=== PATIENT | female | born 1970 | race Asian ===

== ENCOUNTER 2020-09-18 18:17 | Emergency (ER) | payer OTHER, SELFPAY ==
[2020-09-18 18:44] VITALS: BP 146/79; PULSE 64; RESP 16; TEMP 37; O2SAT 100; BMI 28.3
[2020-09-18] MEDS: PROPARACAINE 0.5% OPHTH SOL 1 DROPS EYE-BOTH (19:40)
--- NOTE | 2020-09-18 19:54 | ED.EYEPROB ---
HPI - Eye Problem <Christiano Pineda PA-C - Last Filed: 09/18/20 20:04> General Chief complaint: Eye Problems Stated complaint: Red Left Eye, Got Essential Oil in Eye Time Seen by Provider: 09/18/20 19:51 History of Present Illness HPI Narrative: Drew presents today with chief complaint of left eye irritation, redness and blurred vision that started on Tuesday. She reports that she previously but some peppermint oil to her forehead and thinks some of it may have gotten into her eye. She does not remember a specific incident that occurred but that is her best guess. She has been using eyedrops as she has history of dry eye and acoustic neuroma of the left side but these do not seem to be helping her symptoms. She denies any fever, pain with eye movement, photosensitivity, or any other acute concerns or complaints at this time. Related Data Previous Rx's Medication Instructions Recorded erythromycin 5 mg/gram (0.5 %) eye 1 applic EYE-LEFT QID 7 Days #3.5 g 09/18/20 ointment Allergies Allergy/AdvReac Type Severity Reaction Status Date / Time INGREDIENT: NDA - NO KNOWN Allergy Unknown Uncoded 05/18/17 11:55 DRUG ALLERGIES Review of Systems <Christiano Pineda PA-C - Last Filed: 09/18/20 20:04> Review of Systems Narrative: As per HPI Exam <Christiano Pineda PA-C - Last Filed: 09/18/20 20:04> Narrative Exam Narrative: Exam Narrative: Const General: cooperative, healthy appearing, comfortable, no acute distress, well developed and well groomed Nutritional Appearance: average body habitus Orientation: alert and oriented x3 HENMT Head: normal to inspection and atraumatic Ears: hearing grossly normal bilaterally Nose: external nose normal and nares normal Face and sinus: normal facial exam Eyes: Right eye and surrounding structures grossly normal in appearance. Left eye has diffuse conjunctival injection, clear discharge, and mild periorbital swelling. No fluorescein uptake noted on Wood's lamp evaluation. Thien-Pen performed on the patient, eye pressure that is 13mmHg on the left and 16mmHg on the right. Vision grossly intact. Pupils equal and reactive to light. She has movement deficit to right-sided of the left eye. Neck Neck: normal visual inspection and supple Resp Effort & Inspection: normal respiratory effort, able to speak in complete sentences, no audible wheezes, not labored, no nasal flaring and no respiratory distress Neuro General: alert, oriented x3, gait normal, tone normal and moves all extremities Cognition: normal cognition Speech: speech normal Gait: normal gait Psych Appearance: grossly normal and well kempt Mental Status: mental status grossly normal Speech and Movement: speech and movement normal Mood: congruent mood Affect: normal affect Initial Vital Signs Initial Vital Signs: Vital Signs Temperature 98.6 F 09/18/20 18:44 Pulse Rate 64 09/18/20 18:44 Respiratory Rate 16 09/18/20 18:44 Blood Pressure 146/79 H 09/18/20 18:44 Pulse Oximetry 100 09/18/20 18:44 <Abner Hess DO - Last Filed: 09/19/20 06:22> Initial Vital Signs Initial Vital Signs: Vital Signs Temperature 98.6 F 09/18/20 18:44 Pulse Rate 64 09/18/20 18:44 Respiratory Rate 16 09/18/20 18:44 Blood Pressure 146/79 H 09/18/20 18:44 Pulse Oximetry 100 09/18/20 18:44 Course <Christiano Pineda PA-C - Last Filed: 09/18/20 20:04> Orders Ordered: Discontinued Medications Proparacaine HCl (Proparacaine 0.5% Ophth Ashley) 1 drops EYE-BOTH NOW ONE Stop: 09/18/20 19:46 Last Admin: 09/18/20 19:40 Dose: 1 drops Documented by: AIDAN Vital Signs Vital signs: Vital Signs - 8 hr 09/18/20 18:44 Temperature 98.6 F Pulse Rate 64 Respiratory Rate 16 Blood Pressure 146/79 H Pulse Oximetry 100 <DO Ronaldo Rincon Last Filed: 09/19/20 06:22> Orders Ordered: Discontinued Medications Proparacaine HCl (Proparacaine 0.5% Ophth Ashley) 1 drops EYE-BOTH NOW ONE Stop: 09/18/20 19:46 Last Admin: 09/18/20 19:40 Dose: 1 drops Documented by: JUANITAN Vital Signs Vital signs: Vital Signs - 8 hr 09/18/20 18:44 Temperature 98.6 F Pulse Rate 64 Respiratory Rate 16 Blood Pressure 146/79 H Pulse Oximetry 100 MDM - Eye Problem <Christiano Pineda PA-C - Last Filed: 09/18/20 20:04> [facility] Narrative Medical decision making narrative: Differential diagnosis includes chemical burn, keratitis, acute angle closure glaucoma, conjunctivitis, periorbital cellulitis, Periorbital swelling is minimal at this time. Ocular pressures are within normal limits. She has known history of dry eye and partial paralysis of her left eye secondary to her acoustic neuroma. 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 Strict ER return precautions were discussed. We will treat with antibiotics at this time with the understanding that if her symptoms worsen in any way she will return for re-evaluation. Patient verbalizes understanding and agrees to plan and has no further concerns at this time. Thank you A [id number] system was used with the dictation of this note. Please disregard any spelling or grammatical errors. Discharge Plan Departure Patient Disposition: Home Clinical Impression: Conjunctivitis Qualifiers: Conjunctivitis type: acute Acute conjunctivitis type: unspecified Laterality: left Qualified Code(s): H10.32 - Unspecified acute conjunctivitis, left eye Activity Restrictions/Additional Instructions: It was very nice to meet you this evening. Please apply the topical antibiotics and follow up with Ophthalmology on Tuesday. If you experience significant worsening pain, facial swelling, fever, pain with eye movement, vision changes then please return promptly to the emergency department for re-evaluation. Thank you Christiano Pineda PAC Prescriptions: New erythromycin 5 mg/gram (0.5 %) ointment 1 applic EYE-LEFT QID 7 Days Qty: 3.5 RF: 0 Referrals: Duncan Dunlap DO [Primary Care Provider] - <Abner Hess DO - Last Filed: 09/19/20 06:22> Cosign ED Attending Cosignature Attestation: I was immediately available in the department for consultation. This documentation has been reviewed and I agree with assessment and plan. Supervised by Abner Hess DO
[2020-09-18 20:04] VITALS: BP 141/75; PULSE 60; O2SAT 100
== END 2020-09-18 20:15 | disposition home or self-care (01) ==
PROVIDERS: Emergency Provider Physician Assistant; PCP Family Medicine
DX: H10.32 Unspecified acute conjunctivitis, left eye (principal)
CPT/HCPCS: 99282

== ENCOUNTER 2023-09-25 17:59 | Emergency (ER) | payer OTHER, SELFPAY ==
[2023-09-25 18:09] VITALS: BP 183/84; PULSE 92; RESP 14; TEMP 36.8; O2SAT 100; BMI 26.5
[2023-09-25 18:39] LABS: Add Manual Diff / Slide Review NO; Basophils Absolute Auto 100 /uL (0-100); Basophils Percent Auto 0.8 % (0-2); Eosinophils Absolute Auto 400 /uL (0-450); Eosinophils Percent Auto 5.1 % (2-4); Hematocrit 44.6 % (36-46); Hemoglobin 15.1 g/dL (12.0-16.0); Lymphocytes Absolute Auto 2600 /uL (1100-4500); Lymphocytes Percent Auto 35.1 % (25-40); Mean Corpuscular HGB Conc 33.9 % (30-36); Mean Corpuscular Hemoglobin 29.8 PG (26-34); Mean Corpuscular Volume 87.8 fL (80-100); Monocytes Absolute Auto 600 /uL (0-900); Monocytes Percent Auto 8.4 % (3-14); Neutrophils Absolute Auto 3700 /uL (1500-7000); Neutrophils Percent Auto 50.6 % (50-75); Platelet Count 198 X10^3/uL (150-400); Red Blood Cell Count 5.08 X10^6/uL (4.0-5.2); Red Cell Distribution Width 13.2 % (11.6-14.8); White Blood Cell Count 7.3 X10^3/uL (4.5-11.0)
[2023-09-25 18:49] LABS: Alanine Aminotransferase 21 IU/L (<35); Albumin 4.4 g/dL (3.5-5.0); Albumin Globulin Ratio 1.3 (1.0-2.8); Alkaline Phosphatase 94 U/L (38-126); Aspartate Aminotransferase 28 IU/L (14-36); BUN Creatinine Ratio 17.7 (6-22); Bilirubin Total 0.6 mg/dL (0.2-1.3); Blood Urea Nitrogen 25 mg/dL (7-17); Calcium 9.3 mg/dL (8.4-10.2); Carbon Dioxide 27 mmol/L (22-32); Chloride 105 mmol/L (98-107); Estimated Glomerular Filt Rate 45 mL/min (>60); Globulin 3.4 g/dL (1.7-4.1); Glucose 101 mg/dL (70-100); HEMOLYSIS < 15 (0-50); Potassium 3.6 mmol/L (3.4-5.1); Sodium 139 mmol/L (137-145); Total Protein 7.8 g/dL (6.3-8.2)
[2023-09-25 22:31] VITALS: BP 157/82; PULSE 61; RESP 16; TEMP 36.4; O2SAT 100
[2023-09-25 23:16] VITALS: PULSE 62; O2SAT 98
--- NOTE | 2023-09-25 23:17 | PC.NURSE ---
Pt has left sided facial numbness and is unable to distiguish pain level. However, she was seen at walk-in clinic on Tuesday09/19/23 given ciprofloxacin drops for 7 days. She was also seen by PCP on with instruction to complete ear drop regimen. Pt dizziness started on Tuesday and has continued to presently. Pt states that she has 80% hearing loss in her left ear.
[2023-09-25 23:30] VITALS: PULSE 61; O2SAT 98
--- NOTE | 2023-09-25 23:37 | ED.EAR ---
HPI - Ear Problem General Chief complaint: Ear Stated complaint: Ringing in Ears, Dizzyness Time Seen by Provider: 09/25/23 23:19 Source: patient Mode of arrival: Ambulatory History of Present Illness HPI Narrative: Patient 53-year-old female history of acoustic neuroma presenting today with ringing in her ears. She reports it has been going on for about a week. Her left ear was bothering her she went to the walk-in clinic where they prescribed her ofloxacin drops. She thinks she nicked her ear has not bled a little bit. At 1 point she was dizzy but it did not last for very long she has really not dizzy anymore and has not been for few days. No numbness tingling or weakness. No nausea or vomiting. She continues to have tinnitus. Denies any headache. Related Data Previous Rx's Medication Instructions Recorded meclizine 25 mg tablet 25 mg PO TID PRN dizziness #10 tabs 09/26/23 Allergies Allergy/AdvReac Type Severity Reaction Status Date / Time INGREDIENT: NDA - NO KNOWN Allergy Unknown Uncoded 05/18/17 11:55 DRUG ALLERGIES Patient History Social History Smoking Status: Never smoker Smoking Status: Never smoker alcohol intake frequency: other Alcohol type: other Exam Initial Vital Signs Initial Vital Signs: Vital Signs Temperature 98.3 F 09/25/23 18:09 Pulse Rate 92 H 09/25/23 18:09 Respiratory Rate 14 09/25/23 18:09 Blood Pressure 183/84 H 09/25/23 18:09 Pulse Oximetry 100 09/25/23 18:09 Oxygen Delivery Method Room Air 09/25/23 18:09 GENERAL: Alert well-appearing 53-year-old female and in [no acute] distress. HEENT: Head atraumatic,EOMI, pupils reactive, face symmetric, [moist] mucous membranes EAR: Right ear normal external exam no tympanic erythema or bulging membranes Left normal external ear canal does appear scratched with a scab but no active bleeding no significant erythema or bulging membrane CARDIOVASCULAR: Regular rate and rhythm without murmurs, rubs or gallops. RESPIRATORY: Breath sounds equal bilaterally, no wheezes rales or rhonchi. ABDOMEN: Soft, nontender. Normoactive bowel sounds all 4 quadrants. No guarding or rebound. EXTREMITIES: Normal range of motion, no clubbing or edema. Neurovascularly intact NEUROLOGICAL: Alert and oriented x4.Normal gait and speech. Cranial nerves II through XII grossly intact. SKIN: Warm, dry, no laceration, no petechiae, no rashes or lesions. Course Orders Ordered: ED Orders 09/25/23 23:50 CT head/brain wo con Stat Vital Signs Vital signs: Vital Signs - 8 hr 09/25/23 22:31 09/25/23 23:16 09/25/23 23:30 Temperature 97.5 F L Pulse Rate 61 62 61 Respiratory Rate 16 Blood Pressure 157/82 H Pulse Oximetry 100 98 98 Oxygen Delivery Method Room Air Room Air 09/26/23 00:04 09/26/23 00:06 09/26/23 00:06 Temperature Pulse Rate 75 60 Respiratory Rate Blood Pressure 193/83 H Pulse Oximetry 100 100 Oxygen Delivery Method Room Air 09/26/23 00:11 09/26/23 00:11 Temperature Pulse Rate 57 L Respiratory Rate 18 Blood Pressure 175/70 H Pulse Oximetry 100 Oxygen Delivery Method Medical Decision Making Lab Data 09/25/23 18:25 09/25/23 18:25 Labs: Lab Results 09/25/23 Range/Units 18:25 WBC 7.3 (4.5-11.0) X10^3/uL RBC 5.08 (4.0-5.2) X10^6/uL Hgb 15.1 (12.0-16.0) g/dL Hct 44.6 (36-46) % MCV 87.8 (80-100) fL MCH 29.8 (26-34) PG MCHC 33.9 (30-36) % RDW 13.2 (11.6-14.8) % Plt Count 198 (150-400) X10^3/uL Neut % (Auto) 50.6 (50-75) % Lymph % (Auto) 35.1 (25-40) % [place] % (Auto) 8.4 (3-14) % Eos % (Auto) 5.1 H (2-4) % Baso % (Auto) 0.8 (0-2) % Neut # (Auto) 3700 (0031-1416) /uL Lymph # (Auto) 2600 (2241-1742) /uL [place] # (Auto) 600 (0-900) /uL Eos # (Auto) 400 (0-450) /uL Baso # (Auto) 100 (0-100) /uL Sodium 139 (137-145) mmol/L Potassium 3.6 (3.4-5.1) mmol/L Chloride 105 (98-107) mmol/L Carbon Dioxide 27 (22-32) mmol/L BUN 25 H (7-17) mg/dL Creatinine 1.41 H (0.52-1.04) mg/dL Estimated GFR 45 L (>60) mL/min BUN/Creatinine Ratio 17.7 (6-22) Glucose 101 H (70-100) mg/dL Calcium 9.3 (8.4-10.2) mg/dL Total Bilirubin 0.6 (0.2-1.3) mg/dL AST 28 (14-36) IU/L ALT 21 (<35) IU/L Alkaline Phosphatase 94 (38-126) U/L Total Protein 7.8 (6.3-8.2) g/dL Albumin 4.4 (3.5-5.0) g/dL Globulin 3.4 (1.7-4.1) g/dL Albumin/Globulin Ratio 1.3 (1.0-2.8) Imaging Data CT scan - head: Radiologist's Impression: PROCEDURE: CT HEAD/BRAIN WO CON INDICATIONS: Tinnitus, history left acoustic neuroma TECHNIQUE: Noncontrast 4.5 mm thick angled axial sections acquired from the foramen magnum to the vertex, with coronal and sagittal reformats. For radiation dose reduction, the following was used: automated exposure control, adjustment of mA and/or kV according to patient size. COMPARISON: None. FINDINGS: Image quality: Diagnostic. CSF spaces: Basal cisterns are patent. No extra-axial fluid collections. Ventricles are normal in size and shape. Brain: Encephalomalacia within the left cerebellar hemisphere. No midline shift. No intracranial masses or hemorrhage. Carbajal-white matter interface is normal. Skull and face: Calvarium and visualized facial bones are intact, without suspicious lesions. Postsurgical changes of the left eyelid. Sinuses: Visualized sinuses and mastoids are clear. Left mastoidectomy. IMPRESSION: No cause for patient's symptoms is identified. No acute intracranial pathology. Dictated by: Romaine Patel M.D. on 09/26/2023 at 0:17 MDM Narrative Medical decision making narrative: Patient 53-year-old female presents today with tinnitus and dizziness. He previously had an acoustic neuroma which she says was diagnosed here although after reviewing records I do not see any scans or recent history. She has no neurologic deficits see no evidence of infection. Blood work is overall reassuring without significant leukocytosis. She does have a creatinine of 1.41 was unclear what her baseline is CT head does not show evidence of new neuroma or tumor Differential diagnosis: Meniere's disease acoustic neuroma vestibular migraine BPPV, CVA TIA At this time she is requesting prescription for meclizine but she has no longer dizzy she has no focal deficits no concern for CVA Discharge Plan Departure Patient Disposition: Home Clinical Impression: Tinnitus Instructions: Ringing in the Ears Activity Restrictions/Additional Instructions: *You have been diagnosed with tinnitus *What to do: At this time head CT and blood work overall reassuring. May need follow-up with ENT *Continue to take medications as directed *Follow up with your primary care provider in 2-3 days or call [phone] *Return to ER if you should have increasing ringing in your ears dizziness headache falling or any new, worsening or concerning symptoms Prescriptions: New meclizine 25 mg tablet 25 mg PO TID PRN (Reason: dizziness) Qty: 10 0RF Referrals: Duncan Dunlap DO [Primary Care Provider] - Stand Alone Forms: Patient Portal/API, Work Release Note
--- NOTE | 2023-09-25 23:50 | DI.CT.S_ITS ---
PROCEDURE: CT HEAD/BRAIN WO CON INDICATIONS: Tinnitus, history left acoustic neuroma TECHNIQUE: Noncontrast 4.5 mm thick angled axial sections acquired from the foramen magnum to the vertex, with coronal and sagittal reformats. For radiation dose reduction, the following was used: automated exposure control, adjustment of mA and/or kV according to patient size. COMPARISON: None. FINDINGS: Image quality: Diagnostic. CSF spaces: Basal cisterns are patent. No extra-axial fluid collections. Ventricles are normal in size and shape. Brain: Encephalomalacia within the left cerebellar hemisphere. No midline shift. No intracranial masses or hemorrhage. Carbajal-white matter interface is normal. Skull and face: Calvarium and visualized facial bones are intact, without suspicious lesions. Postsurgical changes of the left eyelid. Sinuses: Visualized sinuses and mastoids are clear. Left mastoidectomy. IMPRESSION: No cause for patient's symptoms is identified. No acute intracranial pathology. Dictated by: Romaine Patel M.D. on 09/26/2023 at 0:17 Approved by: Romaine Patel M.D. on 09/26/2023 at 0:19
[2023-09-26 00:04] VITALS: PULSE 75; O2SAT 100
[2023-09-26 00:06] VITALS: BP 193/83; PULSE 60; O2SAT 100
[2023-09-26 00:11] VITALS: BP 175/70; PULSE 57; RESP 18; O2SAT 100
== END 2023-09-26 00:41 | disposition home or self-care (01) ==
PROVIDERS: Emergency Provider Emergency Medicine; PCP Family Medicine
DX: H93.13 Tinnitus, bilateral (principal); R42 Dizziness and giddiness
CPT/HCPCS: 36415; 70450; 80053; 85025; 99283; 99284